=== PATIENT | female | born 1990 | race American Indian/Alaskan Native ===

== ENCOUNTER 2017-12-26 00:51 | Emergency (ER) | payer MEDICAID ==
[2017-12-26 02:22] LABS: Basophils # (Auto) 0.1 K/mm3 (0.0-0.1); Basophils % (Auto) 0.7 % (0.0-1.8); Eosinophils # (Auto) 0.2 K/mm3 (0.0-0.4); Eosinophils % (Auto) 1.4 % (0.0-4.3); Hematocrit 28.6 % (30.3-42.9); Hemoglobin 9.9 gm/dl (10.1-14.3); Lymphocytes # (Auto) 2.5 K/mm3 (1.2-5.4); Lymphocytes % (Auto) 20.8 % (13.4-35.0); Mean Corpuscular HGB Conc 35 % (30-34); Mean Corpuscular Hemoglobin 33 pg (28-32); Mean Corpuscular Volume 94 fl (79-97); Monocytes # (Auto) 0.9 K/mm3 (0.0-0.8); Monocytes % (Auto) 7.7 % (0.0-7.3); Platelet Count 372 K/mm3 (140-440); Red Blood Count 3.05 M/mm3 (3.65-5.03); Red Cell Distribution Width 13.6 % (13.2-15.2)
[2017-12-26 02:37] LABS: Alanine Aminotransferase 16 units/L (7-56); Albumin 3.5 g/dL (3.9-5); BUN/Creatinine Ratio 23; Blood Urea Nitrogen 9 mg/dL (7-17); Calcium 8.7 mg/dL (8.4-10.2); Hemolysis Index 2
[2017-12-26 04:53] VITALS: BP 106/69
[2017-12-26 05:30] LABS: Bilirubin,Urine NEG (Negative); Blood,Urine NEG (Negative); Color,Urine Yellow (Yellow); Mucus,Urine FEW /HPF; Protein,Urine <15 mg/dL mg/dL (Negative); Urobilinogen,Urine < 2.0 mg/dL (<2.0)
== END 2017-12-26 05:50 | disposition left against medical advice (07) ==
LOC: ED 00:51
DX: O26.892 Other specified pregnancy related conditions, second trimester (principal); Z3A.19 19 weeks gestation of pregnancy; Z53.21 Procedure and treatment not carried out due to patient leaving prior to being seen by health care provider
CPT/HCPCS: 36415; 80053; 81001; 84702; 85025

== ENCOUNTER 2018-04-07 23:21 | Outpatient (CLI) | payer MEDICAID ==
[2018-04-08] VITALS: BP 105/77
[2018-04-08] MEDS ORDERED: LACTATED RINGERS 1,000 ML IV ONE (00:59)
[2018-04-08 01:50] LABS: Basophils % (Auto) 0.5 % (0.0-1.8); Eosinophils # (Auto) 0.1 K/mm3 (0.0-0.4); Eosinophils % (Auto) 0.8 % (0.0-4.3); Hematocrit 25.8 % (30.3-42.9); Hemoglobin 8.8 gm/dl (10.1-14.3); Lymphocytes # (Auto) 2.6 K/mm3 (1.2-5.4); Lymphocytes % (Auto) 27.9 % (13.4-35.0); Mean Corpuscular HGB Conc 34 % (30-34); Mean Corpuscular Hemoglobin 33 pg (28-32); Mean Corpuscular Volume 97 fl (79-97); Monocytes # (Auto) 0.9 K/mm3 (0.0-0.8); Monocytes % (Auto) 9.7 % (0.0-7.3); Platelet Count 320 K/mm3 (140-440); Red Blood Count 2.67 M/mm3 (3.65-5.03); Red Cell Distribution Width 13.1 % (13.2-15.2)
--- NOTE | 2018-04-08 02:17 | Ultrasound Report ---
FINAL REPORT EXAM: US OB FOLLOW UP HISTORY: vaginal bleeding TECHNIQUE: Real-time sonography was performed of the gravid uterus for biophysical profile and images are submitted for interpretation. PRIORS: None. FINDINGS: There is a single fetus in the uterus in a cephalic presentation. The placenta is anterior and the os is clear. The amniotic fluid index is normal at 10.5 cm. The heart is beating at a rate of 162 beats per minute. Biometric measurements give an estimated gestational age of 32 weeks 5 days. Detailed anatomic survey was not performed. Estimated weight: 2071 grams or 4 pounds and 9 ounce Biophysical profile: Breathin Movement: 2 Tone: 2 Fluid volume: 2 IMPRESSION: 1. Single, live intrauterine gestation, estimated gestational age 32 weeks 5 days for an estimated date of confinement of 05/29/2018. 2. Normal biophysical profile, 04/17
--- NOTE | 2018-04-08 02:20 | Ultrasound Report ---
FINAL REPORT EXAM: US OB BPP WO NON-STRESS HISTORY: vaginal bleeding, nonreactive NST TECHNIQUE: Real-time sonography was performed of the gravid uterus for biophysical profile and images are submitted for interpretation. PRIORS: None. FINDINGS: There is a single fetus in the uterus in a cephalic presentation. The placenta is anterior and the os is clear. The amniotic fluid index is normal at 10.5 cm. The heart is beating at a rate of 162 beats per minute. Biometric measurements give an estimated gestational age of 32 weeks 5 days. Detailed anatomic survey was not performed. Estimated weight: 2071 grams or 4 pounds and 9 ounce Biophysical profile: Breathin Movement: 2 Tone: 2 Fluid volume: 2 IMPRESSION: 1. Single, live intrauterine gestation, estimated gestational age 32 weeks 5 days for an estimated date of confinement of 05/29/2018. 2. Normal biophysical profile, 04/17
[2018-04-08 03:54] LABS: Bilirubin,Urine NEG (Negative); Blood,Urine NEG (Negative); Color,Urine Straw (Yellow); Protein,Urine <15 mg/dL mg/dL (Negative); Urobilinogen,Urine < 2.0 mg/dL (<2.0)
[2018-04-08 04:03] LABS: Amphetamine Screen,Urine PRESUMPTIVE NEGATIVE; Benzodiazepines Screen,Urine PRESUMPTIVE NEGATIVE; Cannabinoid Screen,Urine PRESUMPTIVE NEGATIVE; Cocaine Screen,Urine PRESUMPTIVE NEGATIVE; Methadone Screen,Urine PRESUMPTIVE NEGATIVE; Opiate Screen,Urine PRESUMPTIVE NEGATIVE
--- NOTE | 2018-04-08 05:28 | Progress Note ---
Assessment and Plan A: at 34 weeks gestation. contractions (resolved with IV hydration). Not in labor. No signs of vaginal bleeding. Bleeding may have been from hemorrhoid. Normal OB ultrasound (no signs of previa or abruption) and BPP 8/8. Anemia. P: Discharge patient home with follow up at [facility] and [facility] this week. Daily movement counting. Rest at home. Avoid IC. Return promptly if any further bleeding or any other problems. Use Colace to prevent constipation and use Preparation H for hemorroids. Advised patient to take her iron supplements TID. Patient voiced understanding of all instructions. Subjective - Subjective Date of service: 04/08/18 Principal diagnosis: at 34 weeks gestation; bleeding. Interval history: 28 year old at 34 weeks gestation complains of "vaginal bleeding" times 1 episode when wiping approximately 2 hours prior to arrival. Patient states she receives care at [facility]. No records are available. Patient states her EDC is 05/19/18. Patient denies falls or abdominal trauma. She denies feeling any contractions. She denies leaking of fluid. She denies constant abdominal pain. She denies any bowel or bladder symptoms. She states she was on her feet more often than usual today and was out in the heat for several hours today. Patient states she sees [facility] for SGA and Antiphospholipid Syndrome during this and she states she is taking Lovenox. She has an appointment with [facility] this coming Sunday. Patient reports active movement. Urinalysis and UDS negative. A few mild irregular contractions noted, resolved with IV hydration. US shows BPP 8/8 and no signs of placental abruption or previa. Fetus is measuring 32 weeks by US; patient states she knew about SGA and that is why she sees [facility]. CBC shows anemia and patient states she is not taking her iron supplements as she was instructed to do. Patient reports: movement normal, no loss of fluid Objective - Vital Signs Vital Signs: Vital Signs - 12hr 04/07/18 04/08/18 23:59 00:00 Temperature 99.3 F Pulse Rate 78 78 Respiratory 18 Rate Blood Pressure 105/71 Blood Pressure 105/77 [Left] - Exam Abdomen: Present: normal appearance, soft. Absent: distention, tenderness, guarding, rigidity Uterus: Present: normal, fundal height above umbilicus (gravid), other (vaginal speculum exam was performed and no bleeding was seen; cervix was checked and was closed and thick. ). Absent: tenderness FHR: category 1 Uterine Contraction Monitor Mode: External Cervical Dilatation: 0 Cervical Effacement Percentage: 20 station: High Uterine Contraction Frequency (min): Irregular/infrequent Uterine Contraction Intensity: Mild - Labs Labs: Abnormal Labs 04/08/18 01:27 RBC 2.67 L Hgb 8.8 L Hct 25.8 L MCH 33 H RDW 13.1 L Atlantic % (Auto) 9.7 H Atlantic # 0.9 H Laboratory Results - last 24 hr 04/08/18 04/08/18 04/08/18 01:27 03:22 03:22 WBC 9.2 RBC 2.67 L Hgb 8.8 L Hct 25.8 L MCV 97 MCH 33 H MCHC 34 RDW 13.1 L Plt Count 320 Lymph % (Auto) 27.9 Atlantic % (Auto) 9.7 H Eos % (Auto) 0.8 Baso % (Auto) 0.5 Lymph # 2.6 Atlantic # 0.9 H Eos # 0.1 Baso # 0.0 Seg Neutrophils % 61.1 Seg Neutrophils # 5.6 Urine Color Straw Urine Turbidity Clear Urine pH 7.0 Ur Specific Baudette 1.009 Urine Protein <15 mg/dl Urine Glucose (UA) Neg Urine Ketones 20 Urine Blood Neg Urine Nitrite Neg Urine Bilirubin Neg Urine Urobilinogen < 2.0 Ur Leukocyte Esterase Neg Urine WBC (Auto) 1.0 Urine RBC (Auto) 2.0 Urine Opiates Screen Presumptive negative Urine Methadone Screen Presumptive negative Ur Barbiturates Screen Presumptive negative Ur Phencyclidine Scrn Presumptive negative Ur Amphetamines Screen Presumptive negative U Benzodiazepines Scrn Presumptive negative Urine Cocaine Screen Presumptive negative U Marijuana (THC) Screen Presumptive negative Drugs of Abuse Note Disclamer
== END 2018-04-08 05:50 | disposition home or self-care (01) ==
LOC: TRG 23:21
PROVIDERS: ATTEND Obstetrics & Gynecology
DX: O62.9 Abnormality of forces of labor, unspecified (principal); O99.013 Anemia complicating pregnancy, third trimester; Z3A.34 34 weeks gestation of pregnancy
CPT/HCPCS: 36415; 59025; 76816; 76819; 80307; 81001; 85025; 96360; J7120

== ENCOUNTER 2020-06-17 11:38 | Emergency (ER) | payer MEDICAID ==
--- NOTE | 2020-06-17 12:02 | Emergency Department Report ---
- General Chief complaint: Skin Rash Stated complaint: INSECT BITE Time Seen by Provider: 06/17/20 11:58 Source: patient Mode of arrival: Ambulatory Limitations: No Limitations - History of Present Illness Initial comments: This is a 30-year-old female nontoxic well in appearance with no signs of distress presents to the ED with complaint of right thigh redness and pain. Stated is not sure what bite him. Patient denies any swelling, pus, or drainage. Patient denies any other symptoms. Denies any fever, chills, headache, nausea, vomiting, chest pain or SOB. Denies any other complaints. -: days(s) Location: RLE Severity: mild Severity scale (0 -10): 3 Quality: aching Consistency: constant Improves with: none Worsens with: none Context: none Associated symptoms: denies other symptoms - Related Data Home Medications Medication Instructions Recorded Confirmed Last Taken Enoxaparin [Lovenox] 40 mg SQ QDAY 05/15/18 05/15/18 05/12/18 Ferrous Sulfate [Feosol 325 MG tab] 1 tab PO QDAY 05/15/18 05/15/18 1 Day Ago ~05/14/18 Pnv,Calcium 72/Iron/Folic Acid 1 tab PO QDAY 05/15/18 05/15/18 1 Day Ago [Pnv Plus Multivit Tab] ~05/14/18 Previous Rx's Medication Instructions Recorded Last Taken Type Ferrous Sulfate [Feosol 325 MG tab] 325 mg PO TID #90 tablet 05/17/18 Unknown Rx Clindamycin [Clindamycin CAP] 300 mg PO Q8H #21 cap 06/17/20 Unknown Rx Allergies Allergy/AdvReac Type Severity Reaction Status Date / Time No Known Allergies Allergy Unverified 12/26/17 01:55 Abscess Boil HPI - HPI Chief Complaint: Skin Rash Stated Complaint: INSECT BITE Time Seen by Provider: 06/17/20 11:58 Home Medications: Home Medications Medication Instructions Recorded Confirmed Last Taken Enoxaparin [Lovenox] 40 mg SQ QDAY 05/15/18 05/15/18 05/12/18 Ferrous Sulfate [Feosol 325 MG tab] 1 tab PO QDAY 05/15/18 05/15/18 1 Day Ago ~05/14/18 Pnv,Calcium 72/Iron/Folic Acid 1 tab PO QDAY 05/15/18 05/15/18 1 Day Ago [Pnv Plus Multivit Tab] ~05/14/18 Previous Rx's Medication Instructions Recorded Last Taken Type Ferrous Sulfate [Feosol 325 MG tab] 325 mg PO TID #90 tablet 05/17/18 Unknown Rx Clindamycin [Clindamycin CAP] 300 mg PO Q8H #21 cap 06/17/20 Unknown Rx Allergies/Adverse Reactions: Allergies Allergy/AdvReac Type Severity Reaction Status Date / Time No Known Allergies Allergy Unverified 12/26/17 01:55 ED Review of Systems ROS: Stated complaint: INSECT BITE Other details as noted in HPI Constitutional: denies: chills, fever Eyes: denies: eye pain, eye discharge, vision change ENT: denies: ear pain, throat pain Respiratory: denies: cough, shortness of breath, wheezing Cardiovascular: denies: chest pain, palpitations Endocrine: no symptoms reported Gastrointestinal: denies: abdominal pain, nausea, diarrhea Genitourinary: denies: urgency, dysuria, discharge Musculoskeletal: denies: back pain, joint swelling, arthralgia Skin: denies: rash, lesions Neurological: denies: headache, weakness, paresthesias Psychiatric: denies: anxiety, depression Hematological/Lymphatic: denies: easy bleeding, easy bruising ED Past Medical Hx - Past Medical History Previous Medical History?: Yes Hx Hypertension: No Hx Congestive Heart Failure: No Hx Diabetes: No Hx Deep Vein Thrombosis: Yes Hx Renal Disease: No Hx Sickle Cell Disease: No Hx Seizures: No Hx Asthma: No Hx COPD: No Hx HIV: No - Surgical History Past Surgical History?: No - Social History Smoking Status: Never Smoker - Medications Home Medications: Home Medications Medication Instructions Recorded Confirmed Last Taken Type Enoxaparin [Lovenox] 40 mg SQ QDAY 05/15/18 05/15/18 05/12/18 History Ferrous Sulfate [Feosol 325 MG tab] 1 tab PO QDAY 05/15/18 05/15/18 1 Day Ago History ~05/14/18 Pnv,Calcium 72/Iron/Folic Acid 1 tab PO QDAY 05/15/18 05/15/18 1 Day Ago History [Pnv Plus Multivit Tab] ~05/14/18 Ferrous Sulfate [Feosol 325 MG tab] 325 mg PO TID #90 tablet 05/17/18 Unknown Rx Clindamycin [Clindamycin CAP] 300 mg PO Q8H #21 cap 06/17/20 Unknown Rx ED Physical Exam - General Limitations: No Limitations General appearance: alert, in no apparent distress - Head Head exam: Present: atraumatic, normocephalic - Eye Eye exam: Present: normal appearance - Neck Neck exam: Present: normal inspection, full ROM. Absent: tenderness, meningismus, lymphadenopathy - Respiratory Respiratory exam: Absent: respiratory distress - Cardiovascular Cardiovascular Exam: Present: regular rate - Extremities Exam Extremities exam: Present: normal inspection, full ROM, tenderness, normal capillary refill. Absent: joint swelling, calf tenderness - Expanded Lower Extremity Exam Right Hip exam: Present: normal inspection, full ROM. Absent: tenderness, swelling Knee exam: Present: normal inspection, full ROM. Absent: tenderness, swelling Lower Leg exam: Present: full ROM, tenderness, erythema. Absent: swelling, abrasion, laceration, ecchymosis, deformity, crepidus, dislocation, palpable cord, Jennifer's sign Ankle exam: Present: normal inspection, full ROM. Absent: tenderness, swelling Foot/Toe exam: Present: normal inspection, full ROM. Absent: tenderness, swelling Neuro vascular tendon exam: Present: no vascular compromise Gait: Positive: observed and normal 1 - 3 cm x 3 cm cellulitis present here - Back Exam Back exam: Present: normal inspection, full ROM. Absent: CVA tenderness (R) - Neurological Exam Neurological exam: Present: alert, oriented X3, normal gait - Psychiatric Psychiatric exam: Present: normal affect, normal mood - Skin Skin exam: Present: warm, dry, intact, normal color. Absent: rash ED Course Vital Signs 06/17/20 12:01 Temperature 98.7 F Pulse Rate 68 Respiratory 18 Rate Blood Pressure 115/78 O2 Sat by Pulse 97 Oximetry - Reevaluation(s) Reevaluation #1: 06/17/20 12:01 Patient is speaking in full sentences with no signs of distress noted. ED Medical Decision Making - Medical Decision Making This is a 30-year-old female that presents with cellulitis. Patient is stable and was examined by me. The area of redness and cellulitis has been outlined with a permanent marker. Patient will be discharged with Clinda. Patient was instructed to Follow-up with a primary care doctor in 3-5 days or if symptoms worsen and continue return to emergency room as soon as possible. At time of discharge, the patient does not seem toxic or ill in appearance. No acute signs of distress noted. Patient agrees to discharge treatment plan of care. No further questions noted by the patient. Critical care attestation.: If time is entered above; I have spent that time in minutes in the direct care of this critically ill patient, excluding procedure time. ED Disposition Clinical Impression: Cellulitis Qualifiers: Site of cellulitis: extremity Site of cellulitis of extremity: lower extremity Laterality: right Qualified Code(s): L03.115 - Cellulitis of right lower limb Disposition: DC- TO HOME OR SELFCARE Is pt being admited?: No Does the pt Need Aspirin: No Condition: Stable Instructions: Cellulitis (ED) Additional Instructions: Follow-up with a primary care doctor in 3-5 days or if symptoms worsen and c ontinue return to emergency room as soon as possible. Prescriptions: Clindamycin [Clindamycin CAP] 300 mg PO Q8H #21 cap Referrals: PRIMARY MD SARAHI [Referring] - 3-5 Days BETHANY CARRILLO MD [Staff Physician] - 3-5 Days Forms: Work/School Release Form(ED)
[2020-06-17 12:06] VITALS: BP 115/78
== END 2020-06-17 12:07 | disposition home or self-care (01) ==
LOC: ED 11:38
DX: L03.115 Cellulitis of right lower limb (principal); Z86.718 Personal history of other venous thrombosis and embolism; Z79.2 Long term (current) use of antibiotics; Z79.899 Other long term (current) drug therapy
CPT/HCPCS: 99281